=== PATIENT | female | born 1985 | race Two or more races ===

== ENCOUNTER 2019-08-03 16:08 | Inpatient (IN) | payer OTHER ==
[~2019-08-03] VITALS: Ht 162.6 cm; Wt 74.4 kg
[2019-08-19] MEDS ORDERED: PRENATAL CAPLE1 EAC1 PO (05:48)
[2019-08-19] MEDS ORDERED: IRON325 MG PO (05:48)
== END 2019-08-21 11:09 | disposition home or self-care (01) | DRG 807 ==
LOC: OB/GYN 08-19 05:15 → LDR 08-19 05:15 → OB/GYN 08-19 13:18
PROVIDERS: ADMIT Obstetrics & Gynecology
PROC: 10E0XZZ Delivery of Products of Conception, External Approach (ICD-10-PCS; principal; 2019-08-19)
PROC: 0HQ9XZZ Repair Perineum Skin, External Approach (ICD-10-PCS; 2019-08-19)
PROC: 10907ZC Drainage of Amniotic Fluid, Therapeutic from Products of Conception, Via Natural or Artificial Opening (ICD-10-PCS; 2019-08-19)
PROC: 3E033VJ Introduction of Other Hormone into Peripheral Vein, Percutaneous Approach (ICD-10-PCS; 2019-08-19)
PROC: 4A1HXCZ Monitoring of Products of Conception, Cardiac Rate, External Approach (ICD-10-PCS; 2019-08-19)
DX: O70.0 First degree perineal laceration during delivery (principal); Z37.0 Single live birth; Z3A.39 39 weeks gestation of pregnancy

== ENCOUNTER 2021-03-07 12:45 | Inpatient (IN) | payer OTHER ==
[~2021-03-07] VITALS: Ht 157.5 cm; Wt 76.7 kg
[~2021-03-07 12:45] MED LIST: IRON325 MG PO; PRENATAL CAPLE1 EAC1 PO
== END 2021-03-21 09:36 | disposition home or self-care (01) | DRG 798 ==
LOC: OB/GYN 03-19 08:45 → LDR 03-19 08:45 → OB/GYN 03-19 13:42
PROVIDERS: Obstetrics & Gynecology; ADMIT Obstetrics & Gynecology; ATTEND Obstetrics & Gynecology
PROC: 0UB70ZZ Excision of Bilateral Fallopian Tubes, Open Approach (ICD-10-PCS; 2021-03-19)
PROC: 3E033VJ Introduction of Other Hormone into Peripheral Vein, Percutaneous Approach (ICD-10-PCS; 2021-03-19)
PROC: 4A1HXFZ Monitoring of Products of Conception, Cardiac Rhythm, External Approach (ICD-10-PCS; 2021-03-19)
PROC: 10E0XZZ Delivery of Products of Conception, External Approach (ICD-10-PCS; principal; 2021-03-19 13:00)
DX: O80 Encounter for full-term uncomplicated delivery (principal); Z37.0 Single live birth; Z30.2 Encounter for sterilization; Z3A.38 38 weeks gestation of pregnancy; Z20.822 Contact with and (suspected) exposure to COVID-19

== ENCOUNTER 2021-03-14 12:08 | Outpatient (CLI) | payer OTHER | END 2021-03-14 12:54 | disposition home or self-care (01) | LOC: NST 12:08 | PROVIDERS: ATTEND Obstetrics & Gynecology Maternal & Fetal Medicine | DX: Z34.83 Encounter for supervision of other normal pregnancy, third trimester (principal) ==